=== PATIENT | female | born 1985 | race Caucasian/White ===

== ENCOUNTER 2017-05-24 13:45 | Emergency (ER) | payer BC, OTHER ==
[~2017-05-24] VITALS: Ht 162.6 cm; Wt 62.0 kg
[2017-05-24 13:50] VITALS: BP 162/88; PULSE 102; RESP 18; TEMP 98.9; O2SAT 97
--- NOTE | 2017-05-24 13:55 | PD ---
Physical Exam Time Seen by Provider: 13:54 Narrative 31-year-old female presents to the emergency department complaining of possible shingles rash to her right abdominal area 2 days. Reports nausea without vomiting. Denies fever. Patient seen in triage. Vital signs reviewed. Patient awaiting bed placement. Data Data Last Documented VS Vital Signs Date Time Temp Pulse Resp B/P (MAP) Pulse Ox O2 Delivery O2 Flow Rate FiO2 05/24/17 13:50 98.9 102 18 162/88 (112) 97 MDM Supervised Visit with MIR: No Scripts No Active Prescriptions or Reported Meds Anju Burrell May 24, 2017 13:55
[2017-05-24] MEDS ORDERED: HYDR-3533 PO (14:49)
[2017-05-24] MEDS ORDERED: IBUP-232 PO (14:49)
[2017-05-24] MEDS ORDERED: ACYC800T PO (14:49)
--- NOTE | 2017-05-24 14:49 | PD ---
HPI Chief Complaint: Skin Problem Time Seen by Provider: 14:38 Travel History International Travel<30 days: No Contact w/Intl Traveler<30days: No Traveled to known affect area: No History of Present Illness HPI 31 year-old female presents to emergency department for what she believes is shingles. Patient states approximately 2-3 days ago she noticed a reddened rash over the right corner of her abdomen extending around to her flank area. She states prior to this she had tenderness in the pain there that she was uncertain of. That has since resolved. The pain is moderate, were burning and constant. Denies any uvular or chills. No new exposures. No chest tightness. No difficulty breathing. No other symptoms to report. PFSH Past Medical History Anxiety: Yes Diminished Hearing: No Gastrointestinal Disorders: Yes (GASTRITIS) Reproductive: Yes (PASSING CLOTS AND TISSUE SINCE MISCARRIAGE, VAG DISCHARGE X 2 WKS) Immunizations Current: No ?: Not Para: 2 Miscarriage: 1 Past Surgical History Section: Yes Social History Alcohol Use: No Tobacco Use: No Substance Use: Yes (PAST OPIATE ADDICTION) Allergies-Medications (Allergen,Severity, Reaction): Coded Allergies: penicillin G (Unverified Allergy, Severe, 05/24/17) amoxicillin (Unverified Allergy, Mild, 05/24/17) Reported Meds & Prescriptions Reported Meds & Active Scripts Active No Active Prescriptions or Reported Medications Review of Systems Except as stated in HPI: all other systems reviewed are Neg Physical Exam Narrative GENERAL: Well-nourished, well-developed female patient, ambulatory no acute distress. SKIN: Focused skin assessment warm/dry. Clustered vesicular rash with erythematous bases on the right and lateral anterior trunk extending along the T8 dermatome. No pustular formation. HEAD: Normocephalic. EYES: No scleral icterus. No injection or drainage. NECK: Supple, trachea midline. No JVD or lymphadenopathy. CARDIOVASCULAR: Regular rate and rhythm without murmurs, gallops, or rubs. RESPIRATORY: Breath sounds equal bilaterally. No accessory muscle use. GASTROINTESTINAL: Abdomen soft, non-tender, nondistended. MUSCULOSKELETAL: No cyanosis, or edema. BACK: Nontender without obvious deformity. No CVA tenderness. Data Data Last Documented VS Vital Signs Date Time Temp Pulse Resp B/P (MAP) Pulse Ox O2 Delivery O2 Flow Rate FiO2 05/24/17 13:50 98.9 102 18 162/88 (520) 97 MDM Medical Decision Making Medical Screen Exam Complete: Yes Emergency Medical Condition: Yes Medical Record Reviewed: Yes Differential Diagnosis Shingles versus Contact dermatitis versus atopic dermatitis versus folliculitis versus insect bite Narrative Course 31 year-old female presents to department for evaluation of a rash on her anterior lateral trunk. This is consistent with shingles. Patient be treated on acyclovir and encouraged follow-up with primary care provider. She agrees to return immediately with any acute worsening symptoms. Diagnosis Primary Impression: Shingles Qualified Codes: B02.9 - Zoster without complications Referrals: Primary Care Physician Patient Instructions: General Instructions, Shingles (ED) Additional Instructions: Do not scratch at the area Follow-up with her primary care provider Return immediately to the emergency department with any acute worsening of symptoms Med/Other Pt SpecificInfo: Prescription(s) given Scripts Hydrocodone-Acetaminophen (Lortab) 5-325 Mg Tab 1 TAB PO Q6H Y for PAIN GREATER THAN 5, #6 TAB 0 Refills Prov: Virginia Franco 05/24/17 Ibuprofen (Ibuprofen) 600 Mg Tab 600 MG PO Q8H Y for PAIN, #30 TAB 0 Refills Prov: Virginia Franco 05/24/17 Acyclovir (Acyclovir) 800 Mg Tab 800 MG PO 5 TIMES A DAY for Mgmt Viral Infection for 7 Days, TAB 0 Refills Prov: Virginia Franco 05/24/17 Disposition: 01 DISCHARGE HOME Condition: Stable Virginia Franco May 24, 2017 14:49
== END 2017-05-24 15:25 | disposition home or self-care (01) ==
LOC: NEPK 13:45
DX: B02.9 Zoster without complications (principal); F41.9 Anxiety disorder, unspecified
CPT/HCPCS: 99284